=== PATIENT | female | born 1950 | race African-American/Black ===

== ENCOUNTER 2016-09-19 20:43 | Emergency (ER) | payer MEDICARE, OTHER ==
--- NOTE | 2016-09-19 21:25 | ER Document Report ---
ED Medical Screen (RME) - General Stated Complaint: CHEST PAIN Mode of Arrival: Ambulatory Information source: Patient Notes: Patient complains of midsternal chest pain that started this morning. Patient states that pain radiated through to her back and has gone down her right arm. Patient reports pain worsened throughout the day. Patient denies any nausea or vomiting. No shortness of breath. Patient states she took aspirin at home. hx: Hypertension, diabetes I have greeted and performed a rapid initial assessment of this patient. A comprehensive ED assessment and evaluation of the patient, analysis of test results and completion of the medical decision making process will be conducted by additional ED providers. - Related Data Allergies/Adverse Reactions: acetaminophen [From Percocet] Allergy (Verified 09/19/16 21:22) codeine Allergy (Verified 09/19/16 21:22) ibuprofen Allergy (Verified 09/19/16 21:22) oxycodone [From Percocet] Allergy (Verified 09/19/16 21:22) propoxyphene [From Darvocet-N 100] Allergy (Verified 09/19/16 21:22) Sulfa (Sulfonamide Antibiotics) Allergy (Verified 09/19/16 21:22) Physical Exam - Vital signs Vitals: Temp Pulse Resp BP Pulse Ox 98.1 F 75 20 159/80 H 96 09/19/16 21:12 09/19/16 21:12 09/19/16 21:12 09/19/16 21:12 09/19/16 21:12 - Respiratory Chest status: Tender Breath sounds: Normal - Cardiovascular Rhythm: Regular Heart sounds: S1 appreciated, S2 appreciated Course - Vital Signs Vital signs: Temp Pulse Resp BP Pulse Ox 98.1 F 75 20 159/80 H 96 09/19/16 21:12 09/19/16 21:12 09/19/16 21:12 09/19/16 21:12 09/19/16 21:12
[2016-09-19 22:52] LABS: ABSOLUTE EOSINOPHILS # (AUTO) 0.2 10^3/uL (0.0-0.6); ABSOLUTE LYMPHOCYTES (AUTO) 3.1 10^3/uL (0.5-4.7); ABSOLUTE MONOCYTES (AUTO) 0.7 10^3/uL (0.1-1.4); ABSOLUTE NEUT (AUTO) 6.6 10^3/uL (1.7-8.2); BASOPHILS % (AUTO) 0.4 % (0-2); EOSINOPHILS % (AUTO) 2.1 % (0-6); HEMATOCRIT 37.3 % (36.0-47.0); HEMOGLOBIN 12.4 g/dL (12.0-15.5); HGB HCT DIFFERENCE -0.1; MEAN CORPUSCULAR HEMOGLOBIN 29.2 pg (27.0-33.4); MEAN CORPUSCULAR HGB CONC 33.2 g/dL (32.0-36.0); MEAN CORPUSCULAR VOLUME 88 fl (80-97); MONOCYTES % (AUTO) 6.7 % (3-13); RED BLOOD COUNT 4.24 10^6/uL (3.72-5.28); RED CELL DISTRIBUTION WIDTH 14.4 % (11.5-14.0); SEGMENTED NEUTROPHILS % (AUTO) 61.8 % (42-78); WHITE BLOOD COUNT 10.7 10^3/uL (4.0-10.5)
[2016-09-19 23:17] LABS: ALANINE AMINOTRANSFERASE 33 U/L (9-52); ALBUMIN 4.5 g/dL (3.5-5.0); ALKALINE PHOSPHATASE 76 U/L (38-126); ANION GAP 12 (5-19); ASPARTATE AMINO TRANSFERASE 19 U/L (14-36); BILIRUBIN,TOTAL 0.6 mg/dL (0.2-1.3); BLOOD UREA NITROGEN 23 mg/dL (7-20); CALCIUM 10.3 mg/dL (8.4-10.2); CARBON DIOXIDE 27 mmol/L (22-30); CHLORIDE 103 mmol/L (98-107); CREATINE KINASE 104 U/L (30-135); CREATININE RESULT 1.01 mg/dL (0.52-1.25); GLUCOSE 100 mg/dL (75-110); LIPASE 72.4 U/L (23-300); MAGNESIUM 1.9 mg/dL (1.6-2.3); POTASSIUM 3.9 mmol/L (3.6-5.0); SODIUM 142.3 mmol/L (137-145); TOTAL PROTEIN 7.8 g/dL (6.3-8.2)
[2016-09-19 23:28] LABS: CREATINE KINASE MB 0.64 ng/mL (<4.55)
[2016-09-19 23:29] LABS: TROPONIN I < 0.012 ng/mL
--- NOTE | 2016-09-19 23:35 | EKG REPORT ---
SEVERITY:- NORMAL ECG - SINUS RHYTHM : Confirmed by: Sylwia Betancur MD 19-Sep-2016 23:35:08
--- NOTE | 2016-09-20 02:44 | ER Document Report ---
ED General - General Chief Complaint: Chest Pain Stated Complaint: CHEST PAIN Mode of Arrival: Ambulatory Notes: Patient is a 66-year-old female past medical history of hypertension who presents with 2 days of intermittent chest pain. She described the pain as being a sharp, stabbing, intermittent pain. States is worsened by movement or applying pressure to her upper right back. Denies a history of similar symptoms in the past. Denies any cardiac history. She has not seen her primary care doctor regarding today's concerns. Nothing improves the pain. Denies any vomiting, diaphoresis or shortness of breath. No hemoptysis or pleuritic pain. She does not use estrogen. - Related Data Allergies/Adverse Reactions: acetaminophen [From Percocet] Allergy (Verified 09/19/16 21:22) codeine Allergy (Verified 09/19/16 21:22) ibuprofen Allergy (Verified 09/19/16 21:22) oxycodone [From Percocet] Allergy (Verified 09/19/16 21:22) propoxyphene [From Darvocet-N 100] Allergy (Verified 09/19/16 21:22) Sulfa (Sulfonamide Antibiotics) Allergy (Verified 09/19/16 21:22) Past Medical History - General Information source: Patient - Social History Smoking Status: Never Smoker Frequency of alcohol use: None Drug Abuse: None Family History: Reviewed & Not Pertinent Renal/ Medical History: Denies: Hx Peritoneal Dialysis Review of Systems - Review of Systems Notes: Constitutional: Negative for fever. HENT: Negative for sore throat. Eyes: Negative for visual changes. Cardiovascular: Positive for chest pain. Respiratory: Negative for shortness of breath. Gastrointestinal: Negative for abdominal pain, vomiting or diarrhea. Genitourinary: Negative for dysuria. Musculoskeletal: Negative for back pain. Skin: Negative for rash. Neurological: Negative for headaches, weakness or numbness. 10 point ROS negative except as marked above and in HPI. Physical Exam - Vital signs Vitals: Temp Pulse Resp BP Pulse Ox 98.1 F 75 20 159/80 H 96 09/19/16 21:12 09/19/16 21:12 09/19/16 21:12 09/19/16 21:12 09/19/16 21:12 Interpretation: Hypertensive Notes: PHYSICAL EXAMINATION: GENERAL: Well-appearing, well-nourished and in no acute distress. HEAD: Atraumatic, normocephalic. EYES: Pupils equal round and reactive to light, extraocular movements intact, sclera anicteric, conjunctiva are normal. ENT: nares patent, oropharynx clear without exudates. Moist mucous membranes. NECK: Normal range of motion, supple without lymphadenopathy LUNGS: Breath sounds clear to auscultation bilaterally and equal. No wheezes rales or rhonchi. HEART: Regular rate and rhythm without murmurs ABDOMEN: Soft, nontender, normoactive bowel sounds. No guarding, no rebound. No masses appreciated. Chest wall: Pain on palpation of the right central chest wall EXTREMITIES: Normal range of motion, no pitting or edema. No cyanosis. NEUROLOGICAL: No focal neurological deficits. Moves all extremities spontaneously and on command. PSYCH: Normal mood, normal affect. SKIN: Warm, Dry, normal turgor, no rashes or lesions noted. Course - Re-evaluation Re-evalutation: 09/20/16 00:42 Presentation of chest pain in an otherwise well appearing patient. Low clinical suspicion for ACS given clinical history, exam, EKG without ST elevations or depressions, and negative initial troponin. HEART score less than or equal to 3. PE also seems unlikely given clinical history, absence of tachycardia or dyspnea. CXR without evidence of pneumothorax or pneumonia. No widened mediastinum. Aortic dissection also seems unlikely given history, symmetric pulses, CXR, and vitals. HEART Score: History:0 ECG0 Age2 Risk Factors1 Troponin0 Total: 3 0240- Second troponin remains negative. Final assessment: Chest pain in a patient without evidence of cardiac or other serious etiology on workup today. I discussed with patient that, based on their age, risk factors and emergency department testing today, the likelihood that their symptoms are related to a heart attack is very low (estimated risk of heart attack or over the next 30 days of less than 1%). The patient demonstrates decision making capacity and has verbalized an understanding of these risks to me. Based on this, the patient has chosen to follow-up as an outpatient. Usual chest pain return precautions reviewed. The patient states understanding and agreement with this plan. - Vital Signs Vital signs: Temp Pulse Resp BP Pulse Ox 98.9 F 75 18 158/66 H 100 09/20/16 02:52 09/19/16 21:12 09/20/16 02:50 09/20/16 02:50 09/20/16 02:50 - Laboratory Result Diagrams: 09/19/16 22:39 09/19/16 22:39 Laboratory results interpreted by me: 09/19/16 09/19/16 22:39 22:39 WBC 10.7 H RDW 14.4 H BUN 23 H Est GFR (Non-Af Amer) 55 L Calcium 10.3 H - Diagnostic Test Radiology reviewed: Image reviewed, Reports reviewed Radiology results interpreted by me: 09/20/16 02:43 Chest x-ray: No acute infiltrate or pneumothorax - EKG Interpretation by Me Additional EKG results interpreted by me: 09/20/16 02:43 Normal sinus rhythm. Rate 72. No ST elevations or depressions. QTC 418. Discharge - Discharge Clinical Impression: Chest pain Qualifiers: Chest pain type: unspecified Qualified Code(s): R07.9 - Chest pain, unspecified Condition: Good Disposition: HOME, SELF-CARE Additional Instructions: You were seen today for chest pain. The exact cause of your pain is unclear. However, based on your cardiac enzyme testing, chest x-ray, and EKG it does not appear that it is from an immediately life-threatening cause at this time. Although your testing here is normal is critical that you follow-up with your primary care physician for continued evaluation of this chest pain and possible stress testing. I recommended you see your physician within the next 24-48 hours to be evaluated for consideration of a stress test. Please return to emergency department immediately if you have worsening of your chest pain, shortness of breath, vomiting, become unable to exert yourself due to pain or difficulty breathing, you pass out, or have any pain that radiates into your arms, jaw, or back. Please also return if you have any additional symptoms that are concerning to you.
[2016-09-20 02:53] VITALS: BP 158/66
[2016-09-20] MEDS ORDERED: LIDOCAINE 5% (700 MG) TRANSDERMAL ADH..PATCH TP ONE (03:03)
== END 2016-09-20 03:09 | disposition home or self-care (01) ==
LOC: ER 20:43
DX: R07.9 Chest pain, unspecified (principal); I10 Essential (primary) hypertension; Z88.5 Allergy status to narcotic agent; Z88.6 Allergy status to analgesic agent; Z88.2 Allergy status to sulfonamides
CPT/HCPCS: 36415; 71020; 80053; 82550; 82553; 83690; 83735; 84484; 85025; 93005; 93010; 99285